=== PATIENT | male | born 1965 | race Caucasian/White ===

== ENCOUNTER 2019-05-02 11:59 | Inpatient (IN) | payer BC ==
[2019-05-02] VITALS (8 sets, daily range): BP systolic 146–172; BP diastolic 90–112
[~2019-05-02] VITALS: Ht 177.8 cm; Wt 88.5 kg
--- NOTE | ~2019-05-02 | O ---
[place], [place] OPERATIVE NOTE NAME: CAL BOYD UNIT #: [id number] ROOM: 508 DOCTOR: JHOANA WILLIAM MD BIRTHDATE: [birth year] DOS: 05/04/2019 SUBJECTIVE: This report after review of the patient's past records and complained of dysphagia, dyspepsia. PROCEDURE: Today's procedure is going to be panendoscopy plus biopsy. PREMEDICATION: Propofol. SCOPE: Olympus forward-viewing gastroscope Q10 video. REPORT: After putting the patient in left lateral position and application of lubricant to the scope, the scope was introduced. Thereafter, under direct visualization, advanced through the length of esophagus without difficulty. Diffuse esophageal ulceration all the way to cervical esophagus was noticed. Hiatal hernia was seen. Gastric pouch was entered. Antral ulcerations at approximately 1.5 cm in length and 0.5 cm in width was seen. Margin of which was biopsied. Duodenum was entered. Severe case of duodenitis and duodenal ulceration in bulb and second part of duodenum was identified. Photographic series obtained. GI reflection of the scope reveals cardia to be benign. Air was suctioned out. The patient was extubated, tolerated the procedure well. IMPRESSION: 1. Diffuse esophageal ulceration secondary to reflux and alcohol. 2. Hiatal hernia. 3. Gastritis. 4. Antral ulcerations. 5. Severe duodenitis and duodenal ulcers. PLAN AND DISCUSSION Carafate 2 grams slurry 2 hours before meals and at bedtime, Protonix 40 mg IV b.i.d. while inpatient. GERD diet. Gaviscon Extra Strength 1 tablet after meals, elevation of the head of the bed 10 inches all time and trying to see if it detox this patient. I had an extensive discussion with him to abstain from alcoholic beverages and nicotine products. [place], [place] OPERATIVE NOTE NAME: CAL BOYD UNIT #: [id number] ROOM: 508 DOCTOR: JHOANA WILLIAM MD BIRTHDATE: [birth year] JHOANA IWLLIAM MD CM:OPRECORD:OPERATIVE NOTE 33 13 JHOANA WILLIAM MD 05/04/191913 interface
--- NOTE | ~2019-05-02 | EKG ---
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
--- NOTE | ~2019-05-02 | CON ---
[place], [place] REPORT OF CONSULTATION NAME: CAL BOYD UNIT #: [id number] ROOM: 508 DOCTOR: JHOANA WILLIAM MD BIRTHDATE: [birth year] DOS: 05/04/2019 HISTORY OF PRESENT ILLNESS: A 53-year-old patient who is presenting with a chief complaint of epigastric abdominal pain, severe dyspepsia, dysphagia, burning up his throat as he says, he is drinking about 40 bottles of beer per day and he has history of tobacco chew that he has stopped. He has been into nicotine and alcohol since his teenage time. His urine was clear of any recreational drugs. His white blood cell was 8.9, H and H of 16 and 47. INR was 0.9. Lactic acid was 4.1. His chest x-ray was no acute pathology. His phosphorus was 2.6. Lactic acid normalized. His CT scan of the head was done. There were no findings of pathology. CBC differential, remained to be normal. His platelet count 250. Comprehensive metabolic panel: GFR greater than 60. LFTs were found surprisingly only AST of 36 was noticed. His labs and records reviewed. PAST MEDICAL HISTORY: Associated with hyperlipidemia, hypertension, gastroesophageal. PAST SURGICAL HISTORY: Nasal polyp and appendectomy. SOCIAL HISTORY: Active alcohol consumption of 40 bottles almost per day. FAMILY HISTORY: Noncontributory. ALLERGIES: No known medications. REVIEW OF SYSTEMS: HEENT: Denies double vision, blurred vision. RESPIRATORY: Denies shortness of breath. CARDIOVASCULAR: Denies chest pain. DIGESTIVE SYSTEM: Persistent epigastric distress, dyspepsia. PHYSICAL EXAMINATION: VITAL SIGNS: Stable, nontoxic patient. HEENT: Head normocephalic, nontraumatic. Mouth and buccal mucosa benign. NECK: Supple, no thyromegaly, no cervical lymphadenopathy. CHEST: Symmetric anatomy, equal expansion. No wheeze, no rhonchi. HEART: Normal sinus rhythm, no gallop, no murmur. ABDOMEN: Slightly obese. Bowel sounds present. No pulsatile mass. EXTREMITIES: No cyanosis, no pedal edema. NEUROLOGIC: Alert, oriented to time, place, person. No asterixis. No encephalopathy. IMPRESSION: Severe alcohol dependency of approximately 40 bottles per day, systemic hypertension, hyperlipidemia, gastroesophageal reflux, dyspepsia, dysphagia. PLAN AND DISCUSSION: I am going to organize an EGD today. [place], [place] REPORT OF CONSULTATION NAME: CAL BOYD UNIT #: [id number] ROOM: 508 DOCTOR: JHOANA WILLIAM MD BIRTHDATE: [birth year] JHOANA WILLIAM MD CM:CONSTR:REPORT OF CONSULTATION 1834 05/04/19 1906 interface
[2019-05-02 12:27] LABS: BASO # 0.1 10*3/uL (0.0-0.1); BASO % 0.8 % (0.0-1.0); EOS # 0.1 10*3/uL (0.0-0.4); EOS % 0.6 % (1.0-4.0); HEMATOCRIT 47.1 % (42.0-52.0); HEMOGLOBIN 16.8 g/dl (14.0-18.0); LYMPH # 2.9 10*3/uL (1.3-4.4); LYMPH % 32.3 % (27.0-41.0); MEAN CELL VOLUME 88.9 fl (80.0-94.0); MEAN CORPUSCULAR HGB 31.7 pg (27.0-31.0); MEAN CORPUSCULAR HGB CONC 35.7 g/dl (33.0-37.0); MEAN PLATELET VOLUME 10.3 fl (9.6-12.3); MONO # 0.7 10*3/uL (0.1-1.0); MONO % 8.2 % (3.0-9.0); NEUT # 5.2 10*3/uL (2.3-7.9); NEUT % 57.7 % (47.0-73.0); PLATELET COUNT AUTOMATED 261 10*3/uL (130-400); RED CELL DISTRI WIDTH 11.3 % (0-14.5); WHITE BLOOD COUNT 8.9 10*3/uL (4.8-10.8)
--- NOTE | 2019-05-02 12:32 | NUR ---
PT POSITIONED FOR COMFORT WITH SAFETY PRECAUTIONS INTACT AND CALL LIGHT WITHIN REACH,NO ADDITIONAL COMPLAINTS VOICED.
[2019-05-02 12:35] LABS: BILIRUBIN NEGATIVE (NEGATIVE); BLOOD TRACE-INTACT (NEGATIVE); CLARITY CLEAR (CLEAR); COLOR YELLOW (YELLOW); GLUCOSE NEGATIVE (NEGATIVE); KETONE 1+ (NEGATIVE); LEUKO ESTERASE NEGATIVE (NEGATIVE); NITRITE NEGATIVE (NEGATIVE); SPECIFIC GRAVITY <= 1.005 (1.005-1.030); UROBILINOGEN 0.2 E.U./dl (0.2-1.0)
[2019-05-02 12:38] LABS: ACT PARTIAL THROMBO TIME 27.9 SECONDS (20.0-32.1); INTERNATIONAL NORM RATIO 0.9 (2.0-3.5)
[2019-05-02 12:43] LABS: URINE AMPHETAMINES < 1000 (1000ng/ml); URINE BARBITURATES < 200 (200ng/ml); URINE BENZODIAZEPINES < 200 (200ng/ml); URINE CANNABINOIDS (THC) < 50 (50ng/ml); URINE COCAINE < 300 (300ng/ml); URINE METHADONE < 300 (300ng/ml); URINE OPIATES < 300 (300ng/ml)
[2019-05-02 12:44] LABS: ALBUMIN 4.3 gm/dl (3.1-4.5); ALKALINE PHOSPHATASE 85 U/L (45-117); BUN 6 mg/dl (7-24); CHLORIDE 95 mmol/L (98-107); CREATININE 0.91 mg/dL (0.70-1.30); LIPASE 73 U/L (73-393); POTASSIUM 3.8 mmol/L (3.5-5.1); SGOT/AST 66 IU/L (3-35); SGPT/ALT 89 U/L (12-78); SODIUM 129 mmol/L (136-145); TOTAL PROTEIN 8.6 gm/dL (6.4-8.2)
[2019-05-02 12:44] LABS: URINE PHENCYCLIDINE < 25 (25ng/ml)
[2019-05-02 12:46] LABS: TROPONIN I < 0.015 ng/ml (<0.045)
--- NOTE | 2019-05-02 12:48 | NUR ---
LACTIC ACID @ 4.1 PER LAB,DR ADONAY ZAMARRIPA NOTIFIED.
--- NOTE | 2019-05-02 13:26 | NUR ---
FOLIC ADMINISTERED SQ TO RT UPPER ARM AFTER CONVERSING WITH PHARMACY AND DR ADONAY ZAMARRIPA.
--- NOTE | 2019-05-02 14:15 | NUR ---
A 53, admitted to , under the services of TRIP Benson DO with a diagnosis of ETOH, HYPONATREMIA. Chief complaint is STOMACH BURNING. Patient arrived via stretcher from ER. Monitor applied. Initial assessment completed. Vital signs taken and recorded. TRIP BENSON DO notified of admission to the unit. Orders received. See assessment for past medical history, medications and allergies. Patient and/or family oriented to unit. [facility] visitation policy reviewed. Clothing/patient valuable form completed. EDEN DAVIS
--- NOTE | 2019-05-02 14:40 | NUR ---
DR WILLIAM CALLED AND NOTIFIED OF CONSULT.
--- NOTE | 2019-05-02 15:18 | NUR ---
DR ELLIS CALLED AND NOTIFIED OF LACTIC ACID OF 3.8.
--- NOTE | 2019-05-02 20:18 | NUR ---
AWAKE/ALERT FOR SHIFT ASSESSMENT. PLEASANT/COOPERATIVE WITH CARE. MEDICATED WITH PRN TYLENOL AND ZOFRAN ORDERED FOR C/O NECK/THROAT PAIN AND NAUSEA. WILL FOLLOW UP. CALL LIGHT IN REACH
[2019-05-03] VITALS: BP 154/93
--- NOTE | 2019-05-03 03:24 | NUR ---
PATIENT SLEEPING. NO S/S OF DISTRESS NOTED. IV FLUIDS MAINTAINED PER ORDER. CALL LIGHT IS IN REACH
[2019-05-03 08:00] VITALS: BP 150/92
[2019-05-03 08:12] LABS: CHLORIDE 103 mmol/L (98-107); POTASSIUM 3.7 mmol/L (3.5-5.1); SODIUM 136 mmol/L (136-145)
[2019-05-03 08:19] LABS: ALKALINE PHOSPHATASE 78 U/L (45-117); BUN 8 mg/dl (7-24); CHOLESTEROL 218 mg/dL (<200); CREATININE 0.99 mg/dL (0.70-1.30); HDL CHOLESTEROL 79 mg/dl (40-60); LDL CHOLESTEROL 116 mg/dL (9-159); PHOSPHOROUS 2.2 mg/dL (2.5-4.9); SGOT/AST 45 IU/L (3-35); SGPT/ALT 71 U/L (12-78); TOTAL PROTEIN 7.5 gm/dL (6.4-8.2); TRIGLYCERIDES 117 mg/dl (<150); VLDL CHOLESTEROL 23 mg/dL (6-40)
[2019-05-03 12:00] VITALS: BP 138/91
[2019-05-03 16:00] VITALS: BP 142/90
--- NOTE | 2019-05-03 19:33 | NUR ---
PATIENT RESTING IN BED WITH NO S/S OF DISTRESS. AWAKENS EASILY. BED IN LOWEST POSITION, CALL LIGHT IN REACH
[2019-05-03 20:00] VITALS: BP 121/75
[2019-05-04] VITALS: BP 128/84
--- NOTE | 2019-05-04 01:37 | NUR ---
PATIENT RESTING WITH EYES CLOSED. RESPS EASY AND REGULAR. BED IN LOWEST POSITION, CALL LIGHT IN REACH, BED ALARM ON
--- NOTE | 2019-05-04 02:39 | NUR ---
24 HR chart check completed.
--- NOTE | 2019-05-04 05:30 | NUR ---
PATIENT LEFT FLOOR TO "FIND COFFEE". WAS BROUGHT BACK TO ROOM BY SECURITY. SECURITY STATES THEY FOUND HIM IN THE BASEMENT BY THE CAFETERIA. PATIENT WAS ADVISED PREVIOUSLY NOT TO LEAVE THE FLOOR. THIS IS THE SECOND TIME THIS RN HAS TOLD THE PATIENT TO NOT LEAVE THE FLOOR. PATIENT STATES "JUST BECAUSE YOU TELL ME THERE IS NOT ANY COFFEE HERE DOES NOT MEAN I BELIEVE YOU". PATIENT SITTING IN CHAIR AT BEDSIDE. REMINDED THAT CAFETERIA OPENS AT 0700 AND HE CAN ORDER COFFEE WITH HIS BREAKFAST. VERBALIZED UNDERSTANDING. CALL LIGHT IN REACH. BED ALARM ON
--- NOTE | 2019-05-04 05:37 | NUR ---
BROWN BAND PLACED ON PATIENT AND BROWN MAGNET PLACED ON DOORWAY.
--- NOTE | 2019-05-04 05:38 | NUR ---
PATIENT REFUSING TO LAY IN BED WITH BED ALARM OR BODY ALARM IN CHAIR DUE TO UNSTEADINESS. PATIENT WALKING IN HALLWAY. PATIENT WAS ASKED TO STAY IN HIS ROOM. DRIVER GUARD NOTIFIED.
--- NOTE | 2019-05-04 05:46 | NUR ---
DISCUSSED PRN MEDICATIONS WITH PATIENT. PATIENT STATES HE WOULD LIKE ATIVAN FOR ANXIOUSNESS. THIS RN TOLD PATIENT THAT HE NEEDS TO STAY IN BED AFTER BEING GIVEN ATIVAN. PATIENT STATES "WHY CAN I NOT WALK THE HALLWAY". PATIENT WAS INFORMED THAT DUE TO BEING UNSTEADY AND POSSIBLY GETTING A MEDICATION THAT CAN CAUSE DROWSINESS MAKING HIM MORE UNSTEADY, HE WOULD NEED TO STAY IN HIS BED. PATIENT VERBALIZED UNDERSTANDING.
--- NOTE | 2019-05-04 05:53 | NUR ---
PATIENT MEDICATED WITH PRN ATIVAN FOR C/O ANXIOUSNESS PER ORDER. COFFEE MADE IN KITCHEN ON 5EAST PER PATIENT REQUEST. IRONER AT BEDSIDE. PATIENT VERBALIZED UNDERSTANDING ABOUT NOT GETTING OUT OF BED OR LEAVING THE FLOOR. PATIENT STATES "I KNOW I AM NOT ALLOWED TO LEAVE THE FLOOR. THEY TOLD ME THAT YESTERDAY". BED ALARM ON, CALL LIGHT IN REACH, BED IN LOW POSITION
--- NOTE | 2019-05-04 05:58 | NUR ---
PATIENT MEDICATED WITH PRN MOTRIN FOR C/O HEADACHE. WILL MONITOR
[2019-05-04 06:46] LABS: ALBUMIN 4.1 gm/dl (3.1-4.5); ALKALINE PHOSPHATASE 76 U/L (45-117); BUN 8 mg/dl (7-24); CHLORIDE 105 mmol/L (98-107); CREATININE 1.08 mg/dL (0.70-1.30); POTASSIUM 3.7 mmol/L (3.5-5.1); SGOT/AST 36 IU/L (3-35); SGPT/ALT 65 U/L (12-78); SODIUM 137 mmol/L (136-145); TOTAL PROTEIN 7.6 gm/dL (6.4-8.2)
[2019-05-04 07:29] LABS: BASO # 0.1 10*3/uL (0.0-0.1); BASO % 1.2 % (0.0-1.0); EOS # 0.1 10*3/uL (0.0-0.4); EOS % 1.8 % (1.0-4.0); HEMATOCRIT 44.4 % (42.0-52.0); HEMOGLOBIN 14.9 g/dl (14.0-18.0); LYMPH % 46.4 % (27.0-41.0); MEAN CORPUSCULAR HGB 31.2 pg (27.0-31.0); MEAN CORPUSCULAR HGB CONC 33.6 g/dl (33.0-37.0); MEAN PLATELET VOLUME 10.8 fl (9.6-12.3); MONO # 0.5 10*3/uL (0.1-1.0); MONO % 10.4 % (3.0-9.0); NEUT # 1.7 10*3/uL (2.3-7.9); NEUT % 39.7 % (47.0-73.0); PLATELET COUNT AUTOMATED 209 10*3/uL (130-400); RED BLOOD COUNT 4.78 10*6/uL (4.50-5.90); RED CELL DISTRI WIDTH 11.5 % (0-14.5); WHITE BLOOD COUNT 4.3 10*3/uL (4.8-10.8)
[2019-05-04 07:31] LABS: MEAN CELL VOLUME 92.9 fl (80.0-94.0)
--- NOTE | 2019-05-04 08:43 | NUR ---
SPOKE WITH DR WILLIAM REGARDING PT AND CONSULT ON PATIENT. NEW ORDERS RECEIVED TO KEEP PATIENT NPO AFTER CLEAR LIQUID DIET. PT TO HAVE EGD TODAY WITH DR WILLIAM. WILL NOTIFY PATIENT.
--- NOTE | 2019-05-04 09:45 | NUR ---
NOTIFIED DR MINER THAT PT IS NOW NPO FOR EGD TODAY WITH NATALIIA. PHYSICIAN ALSO NOTIFIED THAT PT DID NOT RECEIVE 0800 LIBRIUM. PT HAS HEADACHE AND IS REQUESTING SOMETHING FOR IT. NEW ORDERS RECEIVED FOR 30 MG TORADOL VIA IV NOW, 0.9 NORMAL SALINE AT 100ML/HOUR X 1 BAG. WILL NOTIFY PATIENT AND MEDICATE WHEN AVAILABLE TO PULL.
--- NOTE | 2019-05-04 10:30 | NUR ---
Manager Discovery in to talk to patient. Patient states lives at home alone with his brother checking in on him. There are 12 steps in the home. Physician: resident [facility] Pharmacy: [facility] Home health services: none Patient's level of ADLs: INDEPENDENT Patient has working utilities: yes DME: none Follow-up physician's appointment after d/c: will be made by the hospitalist nurse director upon discharge Does patient want to access PORTAL?: no Discharge plan discussed with patient. He is sitting up in his bedside chair. He is from [place] but is currently living in a house 3 blocks away. He is working at the [employer] in [place]. He is living alone with his brother and friends checking in on him. He is independent in his ADLs and ambulation. Discussed home health care services and he denies any home needs at this time. When medically stable he will be discharged to home. His brother or a friend will provide transportation on discharge. ELLIOT TAFOYA
--- NOTE | 2019-05-04 11:00 | NUR ---
PT NPO FOR SURGERY, WILL CATCH PT UP ON MEDICATIONS AFTER SURGERY. PT AWARE.
--- NOTE | 2019-05-04 15:39 | NUR ---
PT GIVEN ATIVAN 2 MG VIA IV AT THIS TIME FOR S/S WITHDRAWAL. PT STATES THAT HE FEELS DIZZY AND THAT HE FEELS THIS WAY WHEN HE WITHDRAWS FROM ALCOHOL. PT IS CURRENTLY NPO FOR EGD. IV FLUIDS INFUSING INTO LEFT ANTECUBITAL IV SITE. PT IS SITTING ON BED. ALL SAFETY MEASURES ARE IN PLACE. PT STATES THAT HE WILL USE CALL LIGHT TO CALL NURSES FOR ANY WANTS/NEEDS. CALL LIGHT IN REACH.
[2019-05-04 16:00] VITALS: BP 138/95
--- NOTE | 2019-05-04 16:39 | NUR ---
ATIVAN EFFECTIVE PER PT.
--- NOTE | 2019-05-04 16:56 | NUR ---
PT ASKS THIS NURSE TO UNLOCK VIVIANA TO GIVE HIS POCKET KNIFE AND CAR KEYS TO HIS BROTHER. PERSONAL BELONGINGS PAPER IS UPDATED AND PATIENT SIGNS PAPER THAT HE GIVES THESE THINGS TO HIS BROTHER AT THIS TIME.
--- NOTE | 2019-05-04 17:33 | NUR ---
PT TAKEN DOWN TO SURGERY FOR EGD AT THIS TIME.
[2019-05-04 18:27] VITALS: BP 111/63
[2019-05-04 18:42] VITALS: BP 118/63
[2019-05-04 18:57] VITALS: BP 110/80
--- NOTE | 2019-05-04 19:00 | NUR ---
REPORT RECEIVED FROM SURGERY NURSE, ENRIQUE. PT IS STABLE AFTER HAVING EGD WITH DR WILLIAM. ALL FINDINGS OF EGD DISCUSSED WITH THIS NURSE. PT IS TO HAVE A GERD DIET AND RUNNING TRAY HAS BEEN ORDERED FOR PATIENT. VITALS IN SURGERY ARE WNL PER SURGERY RN, PT TO RETURN TO MED SURG FLOOR AT THIS TIME.
--- NOTE | 2019-05-04 19:30 | NUR ---
CALLED PHARMACY AND SPOKE WITH MAURIZIO REGARDING PT LIBRIUM. FITTING ROOM ATTENDANT NOTIFIED THAT PM NURSE IS GOING TO GIVE PT 1600 DOSE OF LIBRIUM AT THIS TIME, TECH ASKED TO NOTIFY PHARMACIST THAT OTHER DOSES OF LIBRIUM WILL NEED RE TIMED DUE TO PATIENT BEING NPO TODAY TO HAVE AN EGD WITH DR WILLIAM.
[2019-05-04 20:00] VITALS: BP 170/87
--- NOTE | 2019-05-04 21:39 | NUR ---
PATIENT RESTING IN BED WITH NO NEEDS MADE. REMINDED TO NOT LEAVE THE FLOOR AND TO CALL FOR ASSISTANCE DUE TO UNSTEADINESS. VERBALIZED UNDERSTANDING.
[2019-05-05] VITALS: BP 115/75
--- NOTE | 2019-05-05 01:33 | NUR ---
PATIENT RESTING IN BED WITH EYES CLOSED. RESPS EASY AND REGULAR. NO S/S OF DISTRESS. BED IN LOWEST POSITION, CALL LIGHT IN REACH
--- NOTE | 2019-05-05 01:47 | NUR ---
24 HR chart check completed.
--- NOTE | 2019-05-05 04:13 | NUR ---
PATIENT RESTING IN BED WITH NO S/S OF DISTRESS. BED IN LOWEST POSITION, BED ALARM ON, CALL LIGHT IN REACH
--- NOTE | 2019-05-05 04:19 | NUR ---
PATIENT WOKE UP CONFUSED TO PLACE. REORIENTED. C/O HEADACHE. SCHEDULED MEDICATIONS TAKEN WITHOUT DIFFICULTY. BED ALARM ON, BED IN LOWEST POSITION, CALL LIGHT IN REACH
--- NOTE | 2019-05-05 05:52 | NUR ---
MEDICATED WITH PRN TYLENOL FOR C/O HEADACHE AND VISTARIL FOR C/O ANXIOUSNESS. WILL MONITOR
--- NOTE | 2019-05-05 05:55 | NUR ---
PATIENT AMBULATED TO RESTROOM WITH ASSIST. REFUSED TO LET THIS RN HELP HIM ONCE HE MADE IT TO THE RESTROOM. RESTING AGAINST WALL. STATES HE DOES NOT WANT ANYMORE HELP. WALKER PLACED IN RESTROOM FOR ASSISTANCE. DIRECTED TO PULL CALL LIGHT STRING WHEN DONE. VERBALIZED UNDERSTANDING.
[2019-05-05 08:00] VITALS: BP 148/91
--- NOTE | 2019-05-05 09:58 | NUR ---
PHYSICAL THERAPY Physical therapy evaluation completed, 5E. Full details to follow. Low complexity determined after chart review/evaluation, [id number]. Pt has no PT needs. Recommending home at discharge with no therapy needs. Thank you Sherrie Gaona, PT, DPT
--- NOTE | 2019-05-05 10:00 | NUR ---
Application Integration Specialist in to see patient. No new needs or request at this time. He denies any home needs. When medically stable he will be discharged to home.
[2019-05-05 12:00] VITALS: BP 150/84
[2019-05-05] MEDS ORDERED: PROTONIX40 MG PO (13:37)
[2019-05-05] MEDS ORDERED: CARAFATE1 G1 PO (13:37)
[2019-05-05] MEDS ORDERED: B-1100 M1 PO (13:37)
--- NOTE | 2019-05-05 14:10 | NUR ---
Discharge instructions reviewed with patient/family. Patient receptive and verbalizes understanding. Follow-up care arranged. Written instructions given to patient/family. TAO SEQUEIRA
--- NOTE | 2019-05-05 14:18 | NUR ---
pt discharged at this time with friend to home.
== END 2019-05-05 14:18 | disposition home or self-care (01) | DRG 381 ==
LOC: ED 11:59 → 5E 13:04 → EDHOLD 13:04 → 5E 14:01
PROVIDERS: Emergency Medicine; Internal Medicine; Student in an Organized Health Care Education/Training Program; ADMIT Internal Medicine
PROC: 0DB78ZX Excision of Stomach, Pylorus, Via Natural or Artificial Opening Endoscopic, Diagnostic (ICD-10-PCS; principal; 2019-05-04)
DX: K22.10 Ulcer of esophagus without bleeding (principal); E87.2 Acidosis; F10.232 Alcohol dependence with withdrawal with perceptual disturbance; E87.1 Hypo-osmolality and hyponatremia; K26.9 Duodenal ulcer, unspecified as acute or chronic, without hemorrhage or perforation; K21.0 Gastro-esophageal reflux disease with esophagitis; K29.80 Duodenitis without bleeding; K29.20 Alcoholic gastritis without bleeding; I10 Essential (primary) hypertension; E78.5 Hyperlipidemia, unspecified; R13.10 Dysphagia, unspecified; K44.9 Diaphragmatic hernia without obstruction or gangrene; R74.0 Nonspecific elevation of levels of transaminase and lactic acid dehydrogenase [LDH]; K25.7 Chronic gastric ulcer without hemorrhage or perforation; Z90.89 Acquired absence of other organs; Z81.1 Family history of alcohol abuse and dependence; Z82.49 Family history of ischemic heart disease and other diseases of the circulatory system